=== PATIENT | male | born 1995 | race Caucasian/White ===

== ENCOUNTER 2023-09-28 05:48 | Emergency (ER) | payer SELFPAY ==
[2023-09-28 05:52] VITALS: BP 151/94; PULSE 90; RESP 18; TEMP 36.8; O2SAT 98; BMI 43.6
--- NOTE | 2023-09-28 06:06 | ED_ITS ---
HPI - General Adult General Chief complaint: Upper Respiratory Infection Stated complaint: COUGH Time Seen by Provider: 09/28/23 05:58 Source: patient Mode of arrival: walk-in Limitations: no limitations History of Present Illness HPI narrative: Patient with asthma presents with cough, nasal and chest congestion and wheezing that is worse at night while laying down. No fever or chills. No ear pain but he admits to scratchy throat. Related Data Previous Rx's Medication Instructions Recorded albuterol sulfate 90 mcg/actuation 2 inh inhalation Q6H PRN shortness 09/28/23 aerosol inhaler (Proventil HFA) of breath or wheezing #6.7 grams henfljfwhseanyv-vbqhcmpujzcdacn-AJ 5 ml PO Q6H PRN cold symptoms 7 09/28/23 2 mg-30 mg-10 mg/5 mL oral syrup days #118 mL (Bromfed DM) prednisone 20 mg tablet 40 mg PO DAILY #10 tabs 09/28/23 Allergies Allergy/AdvReac Type Severity Reaction Status Date / Time No Known Drug Allergies Allergy Verified 09/28/23 05:56 PFSH PFS Social History Smoking status: Never smoker Exam Narrative Exam Narrative: Nurses notes and vital signs reviewed and patient is not hypoxic. afebrile General: Well-appearing and in no apparent distress. Skin: Warm, dry, no pallor noted. No rash. Head: Normocephalic, atraumatic. Neck: Supple, non-tender. no cervical lymphadenopathy Eye: Pupils are equal, round and EOMI. No scleral icterus. Ears, Nose, Mouth, and Throat: TM are clear, mild nasal mucosal hypertrophy. Oral mucosa is moist, no posterior oropharynx erythema or exudate, uvula is mid- line Cardiovascular: Regular Rate and Rhythm without murmur, gallop or rub. Respiratory: No accessory muscle use or respiratory distress. Lungs with diffuse end expiratory wheezing but no rales or rhonchi Neurological: A&O x4. No cranial nerve dysfunction observed. No truncal ataxia. Moves all extremities. Sensation intact. Psychiatric: Cooperative and interactive. Normal mood and affect. Constitutional Vital Signs, click to edit/add: Last Vital Signs Temp 98.2 F 09/28/23 05:52 Pulse 90 09/28/23 05:52 Resp 18 09/28/23 05:52 BP 151/94 H 09/28/23 05:52 Pulse Ox 98 09/28/23 05:52 O2 Del Method Room Air 09/28/23 05:52 Course Vital Signs Vital signs: Vital Signs Temperature 98.2 F 09/28/23 05:52 Pulse Rate 90 09/28/23 05:52 Respiratory Rate 18 09/28/23 05:52 Blood Pressure 151/94 H 09/28/23 05:52 Pulse Oximetry 98 09/28/23 05:52 Oxygen Delivery Method Room Air 09/28/23 05:52 Temperature 98.2 F 09/28/23 05:52 Pulse Rate 90 09/28/23 05:52 Respiratory Rate 18 09/28/23 05:52 Blood Pressure 151/94 H 09/28/23 05:52 Pulse Oximetry 98 09/28/23 05:52 Oxygen Delivery Method Room Air 09/28/23 05:52 Medical Decision Making MDM Narrative Medical decision making narrative: patient received DuoNeb treatment in the emergency department. He was discharged home with prescriptions for short course of prednisone, Bromfed-DM cough syrup and an albuterol inhaler. He was given referral information for primary care physicians in the area taking new patients as the patient does not currently have a primary care physician. He is instructed to return the emergency Department if he worsens. Patient advised to rest, stay at home, practice social distancing, take Motrin and Tylenol for pain and fever if not allergic, stay well hydrated with Gatorade or similar drinks if vomiting or eat as tolerated if not and take any meds as prescribed. Reviewed reasons to return including rapid increase in respiratory rate, shortness of breath, confusion, inability to keep down sips of swallowed liquids for more than 24 hours. Asked patient to encourage any ill contacts to stay home and practice similar advice. Discharge Plan Discharge Chief Complaint: Upper Respiratory Infection Clinical Impression: Asthma exacerbation, Upper respiratory infection Patient Disposition: Home, Self-Care Time of Disposition Decision: 06:04 Prescriptions / Home Meds: New prednisone 20 mg tablet 40 mg PO DAILY Qty: 10 0RF pcfuqzurtawppxg-dmlbefrlw-BK [Bromfed DM] 2-30-10 mg/5 mL syrup 5 ml PO Q6H PRN (Reason: cold symptoms) 7 Days Qty: 118 0RF albuterol sulfate [Proventil HFA] 90 mcg/actuation HFA aerosol inhaler 2 inh inhalation Q6H PRN (Reason: shortness of breath or wheezing) Qty: 6.7 0RF Instructions: Asthma (ED), Upper Respiratory Infection (ED) Stand Alone Forms: Portal Instructions
[2023-09-28] MEDS: IPRATROPIUM/ALBUTEROL SULFATE 3 ML AMPUL.NEB IH (06:28)
[2023-09-28 06:29] VITALS: PULSE 84; O2SAT 98
== END 2023-09-28 06:50 | disposition home or self-care (01) ==
PROVIDERS: Emergency Provider Emergency Medicine
DX: J45.901 Unspecified asthma with (acute) exacerbation (principal); J06.9 Acute upper respiratory infection, unspecified
CPT/HCPCS: 94640; 99283